=== PATIENT | female | born 1930 | race Caucasian/White ===

== ENCOUNTER 2016-10-04 17:49 | Emergency (ER) | payer MEDICARE, OTHER ==
[~2016-10-04 17:49] MED LIST: ACETAMINOPHEN325 MG PO; ALTACE5 MG PO; AMBIEN5 MG PO; CARTIA XT240 MG PO; FLUOROURACIL30 GM TOP; HYDROCODON-ACE1 EAC4 PO; LASIX40 MG PO; LOPRESSOR100 MG PO; VISTARIL25 MG PO; XARELTO15 MG PO; ZOLOFT100 MG PO
== END 2016-10-05 01:00 | disposition home or self-care (01) ==
LOC: ER 17:49
DX: I13.0 Hypertensive heart and chronic kidney disease with heart failure and stage 1 through stage 4 chronic kidney disease, or unspecified chronic kidney disease (principal); N18.9 Chronic kidney disease, unspecified; I50.9 Heart failure, unspecified; J44.1 Chronic obstructive pulmonary disease with (acute) exacerbation; L50.0 Allergic urticaria; M15.9 Polyosteoarthritis, unspecified; J45.909 Unspecified asthma, uncomplicated; I48.91 Unspecified atrial fibrillation; E78.5 Hyperlipidemia, unspecified; Z79.899 Other long term (current) drug therapy
CPT/HCPCS: 36415; 94640; 96374; 96375; J1940